=== PATIENT | male | born 1955 | race Asian ===

== ENCOUNTER 2016-12-14 08:59 | Emergency (ER) | payer OTHER ==
[2016-12-14 09:04] VITALS: BP 141/88; TEMP 98.6; BMI 27.3
--- NOTE | 2016-12-14 10:31 | PDOC ---
History of Present Illness - General Chief Complaint: Pain Stated Complaint: PAIN/ NECK, JAW Time Seen by Provider: 12/14/16 09:31 History Source: Patient Exam Limitations: No Limitations - History of Present Illness Initial Comments: 12/14/16 10:25 61 yr male with right sided toothache causing pain to the right side of his neck and head for 2 days. Pt states he didnt sleep well due to pain. no fever or chills, took 800mg ibuprofen with no relief. c/o headache to right side. Pt has HTN, DM. Past History - Past Medical History Allergies/Adverse Reactions: Allergies Allergy/AdvReac Type Severity Reaction Status Date / Time No Known Allergies Allergy Verified 12/14/16 09:04 Home Medications: Ambulatory Orders Cyclobenzaprine HCl [Flexeril -] 5 mg PO TID PRN #21 tablet 12/14/16 Naproxen [Naprosyn -] 500 mg PO BID PRN #21 tablet 12/14/16 Diabetes: Yes HTN: Yes Hypercholesterolemia: Yes - Immunization History Immunization Up to Date: Yes - Psycho/Social/Smoking Cessation Hx Anxiety: No Suicidal Ideation: No Smoking History: Current every day smoker Have you smoked in the past 12 months: No Number of Cigarettes Smoked Daily: 6 Information on smoking cessation initiated: Yes 'Breaking Loose' booklet given: 12/14/16 Hx Alcohol Use: No Drug/Substance Use Hx: No Substance Use Type: None *Physical Exam - Vital Signs Last Vital Signs Temp Pulse Resp BP Pulse Ox 98.6 F 134 H 20 141/88 99 12/14/16 09:01 12/14/16 09:01 12/14/16 09:01 12/14/16 09:01 12/14/16 09:01 - Physical Exam General Appearance: Yes: Nourished, Appropriately Dressed HEENT: positive: EOMI, ROMEO, Normal ENT Inspection, TMs Normal, Pharynx Normal, Other (tender to gum line right lower jaw no abscess, , poor dentition) Neck: positive: Tender, Supple, Tender lateral, Other (PAIN WITH ROM OF NECK, EXTENSION FLEXION WITH PAIN). negative: Lymphadenopathy (R), Rigidity, Tender midline Respiratory/Chest: positive: Lungs Clear, Normal Breath Sounds Cardiovascular: positive: Regular Rhythm, Tachycardia Gastrointestinal/Abdominal: positive: Normal Bowel Sounds, Soft Integumentary: positive: Normal Color, Dry, Warm Neurologic: positive: brand marketing coordinator II-XII NML intact, Fully Oriented, Alert, Normal Mood/ Affect ED Treatment Course - RADIOLOGY Radiology Studies Ordered: Category Date Time Status HEAD CT WITHOUT CONTRAST [CT] Stat CT Scan 12/14/16 09:43 Taken - Medications Given in the ED: ED Medications Discontinued Medications Generic Name Dose Route Start Last Admin Trade Name Freq PRN Reason Stop Dose Admin Oxycodone/Acetaminophen 1 combo 12/14/16 09:43 12/14/16 09:46 Percocet 5/325 - PO 12/14/16 09:44 1 combo ONCE ONE Administration Medical Decision Making - Medical Decision Making 12/14/16 11:38 cc: neck pain headache toothache for 2 days pt denies trauma , states he woke up with stiff neck didnt sleep well due to toothache pt denies dizzyness, no vomiting or nausea pain reproducable with movement of neck extension and flexion and turning to the left no midline tenderness 12/14/16 11:41 12/14/16 11:41 HR rechecked after percocet apical rate is regular at 89 BPM. pt dc home steady gait , states he is taking a cab home. *DC/Admit/Observation/Transfer Diagnosis at time of Disposition: Toothache, Neck pain - Discharge Dispostion Disposition: HOME Condition at time of disposition: Good - Prescriptions Prescriptions: Cyclobenzaprine HCl [Flexeril -] 5 mg PO TID PRN #21 tablet PRN Reason: Muscle Spasms Naproxen [Naprosyn -] 500 mg PO BID PRN #21 tablet PRN Reason: Pain - Referrals Referrals: Carmela Kay MD [Primary Care Provider] - - Patient Instructions Additional Instructions: take the medication as prescribed for pain DO NOT DRIVE DRINK ALCOHOL OR OPERATE MACHINERY WHILE TAKING FLEXERIL FOR MUSCLE SPASM follow with your dentist this week call today to make appointment follow with your medical doctor TOMORROW for follow up
[2016-12-14 11:41] VITALS: PULSE 127
== END 2016-12-14 11:41 | disposition home or self-care (01) ==
LOC: JERFT 08:59
DX: K08.89 Other specified disorders of teeth and supporting structures (principal); I10 Essential (primary) hypertension; E11.9 Type 2 diabetes mellitus without complications; E78.00 Pure hypercholesterolemia, unspecified; F17.210 Nicotine dependence, cigarettes, uncomplicated
CPT/HCPCS: 70450-TC; 99281-25

== ENCOUNTER 2019-04-23 07:31 | Day surgery (SDC) | payer OTHER ==
[2019-04-22 14:44] VITALS: BMI 26.6
[2019-04-23 08:57] VITALS: TEMP 98
[2019-04-23 09:38] VITALS: BP 146/85; PULSE 80
== END 2019-04-23 10:30 | disposition home or self-care (01) ==
LOC: JASU-ENDO 07:31
PROVIDERS: ATTEND Internal Medicine Gastroenterology
PROC: 0DJD8ZZ Inspection of Lower Intestinal Tract, Via Natural or Artificial Opening Endoscopic (ICD-10-PCS; principal; 2019-04-23 08:00)
DX: Z12.11 Encounter for screening for malignant neoplasm of colon (principal)